=== PATIENT | female | born 1980 | race Caucasian/White ===

== ENCOUNTER 2024-03-20 20:57 | Emergency (ER) | payer BC ==
[~2024-03-20] VITALS: Ht 167.6 cm; Wt 93.0 kg
[2024-03-20 21:17] VITALS: BP_SYST 150; PULSE 87; RESP 16; TEMP 98.5; O2SAT 99
[2024-03-20] MEDS ORDERED: PRED20TA PO (21:58)
[2024-03-20] MEDS ORDERED: DIPH25CA83 PO (21:58)
[2024-03-20 22:35] VITALS: BP_SYST 130; PULSE 74; RESP 18; TEMP 98.4; O2SAT 98
[2024-03-20] MEDS ORDERED: ALBUMIN HUMAN 25% 200 ML IV ONE (23:54)
== END 2024-03-20 22:00 | disposition home or self-care (01) ==
LOC: SED 20:57
DX: L50.9 Urticaria, unspecified (principal); R03.0 Elevated blood-pressure reading, without diagnosis of hypertension; Z90.49 Acquired absence of other specified parts of digestive tract; Z98.890 Other specified postprocedural states
CPT/HCPCS: 99283